=== PATIENT | male | born 1960 | race Caucasian/White ===

== ENCOUNTER 2021-10-22 20:59 | Emergency (ER) | payer OTHER ==
[~2021-10-22] VITALS: Ht 180.3 cm; Wt 86.2 kg
[2021-10-22] MEDS ORDERED: IRON325 M1 PO (21:13)
[2021-10-22] MEDS ORDERED: POTASSIUM CHLO10 MEQ PO (21:14)
== END 2021-10-23 00:55 | disposition home or self-care (01) ==
LOC: ED 20:59
DX: R60.0 Localized edema (principal); Z79.899 Other long term (current) drug therapy
CPT/HCPCS: 80053; 85025; 99283